=== PATIENT | male | born 2000 | race Caucasian/White ===

== ENCOUNTER → 2020-08-15 | Outpatient (CLI) | payer BC ==
--- NOTE | 2020-08-15 14:32 | RAD ---
EXAM: AP, lateral and sunrise views of the right knee. DATE: 08/15/2020 9:35 AM INDICATION: Reason: RIGHT KNEE ACL INSTABILITY / Spl. Instructions: / History: COMPARISON: No Prior FINDINGS: No acute fracture or dislocation. Changes of ACL reconstruction are seen. Joint spaces are preserved. Tricompartmental osteophytes. No knee joint effusion. IMPRESSION: 1. No acute fracture or dislocation. 2. Mild right knee joint osteoarthritis. Electronically signed by: Georgi Mejia MD (08/15/2020 2:30 PM) [facility]
== END ==
LOC: RAD 09:29
PROVIDERS: ATTEND Orthopaedic Surgery Sports Medicine
DX: M17.11 Unilateral primary osteoarthritis, right knee (principal); M25.761 Osteophyte, right knee
CPT/HCPCS: 73560